=== PATIENT | male | born 1965 | race Caucasian/White ===

== ENCOUNTER 2017-12-03 13:11 | Emergency (ER) | payer MEDICARE, OTHER ==
--- NOTE | 2017-12-03 14:46 | ULT ---
VENOUS DOPPLER ULTRASOUND OF THE LEFT LOWER EXTREMITY: Date: 12/03/17 HISTORY: Left leg pain and edema. TECHNIQUE: Soto scale ultrasound with color flow and spectral Doppler imaging of the deep venous system of the l eft lower extremity is performed. FINDINGS: There is absence of flow and compression in the trifurcation and small portion of the popliteal vein. The remainder of the deep venous system of the left lower extremity is otherwise patent. IMPRESSION: Deep venous thrombosis in the left lower extremity. Report called over the telephone to ER physician, Dr. Med Erwin, at 1440 hours. CODE CR. POS: SANTY
== END 2017-12-03 16:28 | disposition home or self-care (01) ==
LOC: ERS 13:11
DX: I82.402 Acute embolism and thrombosis of unspecified deep veins of left lower extremity (principal); K21.9 Gastro-esophageal reflux disease without esophagitis; I10 Essential (primary) hypertension; Z86.73 Personal history of transient ischemic attack (TIA), and cerebral infarction without residual deficits; F41.9 Anxiety disorder, unspecified; F17.210 Nicotine dependence, cigarettes, uncomplicated; Z79.899 Other long term (current) drug therapy

== ENCOUNTER 2020-02-24 13:34 | Outpatient (CLI) | payer MEDICARE, MEDICAID ==
--- NOTE | 2020-02-24 14:48 | CT ---
LOW DOSE CT SCAN OF THE CHEST WITHOUT IV CONTRAST FOR LUNG CANCER SCREENING: FINDINGS: There is a 3 mm parafissural solid nodule in the right upper lobe and a 3 mm solid nodule in the ling [place]. There is minimal scarring in the lingula and right middle lobe. 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 No pleural or pericardial effusions are seen. There are vascular calcifications without evidence of aneurysmal dilatation of the abdominal aorta. There are degenerative changes in the spine. Upper abdominal tomograms demonstrate cysts in the visualized portions of the kidneys. IMPRESSION: Lung RADS category 2: benign. RECOMMENDATION: Continue annual screening with LDCT in 12 months. POS: OFF
== END 2020-02-24 13:35 | disposition home or self-care (01) ==
LOC: BICCT 13:34
PROVIDERS: ATTEND Family Medicine
DX: Z12.2 Encounter for screening for malignant neoplasm of respiratory organs (principal); F17.210 Nicotine dependence, cigarettes, uncomplicated
CPT/HCPCS: G0297